=== PATIENT | male | born 1950 | race Caucasian/White ===

== ENCOUNTER 2020-07-11 17:01 | Inpatient (IN) | payer MEDICARE, OTHER ==
--- NOTE | 2020-07-11 17:24 | ED ---
Weakness HPI - General Chief complaint: Weakness Stated complaint: Weakness Time Seen by Provider: 07/11/20 17:01 Source: patient, EMS, RN notes reviewed Mode of arrival: EMS Limitations: no limitations - History of Present Illness Initial comments: C 69-year-old male with a history of lymphoma COPD for ablation and pacemaker among other medical problems please see the attached list who presents from [facility] the transfer with complaints of generalized weakness and inability to weight-bear. The weakness apparently is been going on for about a week. The lymphoma diagnosis is apparently new any is in the process of workup at this time. He recently has had a decrease in oral intake and was noted have dark urine this morning per family apparently. No fevers chills nausea vomiting sweats reported. He does have full appears be chronic edema the left upper extremity and both feet per report. Per paramedics patient did demonstrate tachycardia of about 120 a blood pressure of proximal a 77 systolic. He was given a total of 1200 mL of fluid he did improve his heart rate as well as blood pressure. Occupation modifying factors at this time MD Complaint: generalized weakness Review of Systems ROS Statement: Those systems with pertinent positive or pertinent negative responses have been documented in the HPI. ROS Other: All systems not noted in ROS Statement are negative. Past Medical History Past Medical History: Atrial Fibrillation, COPD Additional Past Medical History / Comment(s): lymphoma. 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 radiation and chemo in 2018 History of Any Multi-Drug Resistant Organisms: None Reported Additional Past Surgical History / Comment(s): knee surgery Past Psychological History: No Psychological Hx Reported Smoking Status: Never smoker Past Alcohol Use History: None Reported Past Drug Use History: None Reported General Exam - General Exam Comments Initial Comments: This is a well-developed well-nourished awake alert oriented times female he is slow to answer questions however. Limitations: no limitations General appearance: alert, in no apparent distress Head exam: Present: atraumatic, normocephalic, normal inspection Eye exam: Present: normal appearance, PERRL, EOMI. Absent: scleral icterus, conjunctival injection, periorbital swelling ENT exam: Present: mucous membranes dry Neck exam: Present: normal inspection, full ROM, other (No stridor JVD or bruits). Absent: tenderness, meningismus, lymphadenopathy Respiratory exam: Present: normal lung sounds bilaterally. Absent: respiratory distress, wheezes, rales, rhonchi, stridor Cardiovascular Exam: Present: regular rate, normal rhythm, normal heart sounds. Absent: systolic murmur, diastolic murmur, rubs, gallop, clicks GI/Abdominal exam: Present: soft, normal bowel sounds. Absent: distended, tenderness, guarding, rebound, rigid Rectal exam: Present: deferred Extremities exam: Present: full ROM, normal capillary refill, pedal edema (Edema noted to both feet and also to left upper extremity extending up into the axilla.). Absent: tenderness, joint swelling, calf tenderness Back exam: Present: normal inspection Neurological exam: Present: alert, oriented X3, CN II-XII intact Psychiatric exam: Present: normal affect, normal mood Skin exam: Present: warm, dry, intact, normal color. Absent: rash Course Vital Signs 07/11/20 17:04 Temperature 98.0 F Pulse Rate 75 Respiratory 20 Rate Blood Pressure 94/63 O2 Sat by Pulse 100 Oximetry Medical Decision Making - Medical Decision Making I did review the materials presented from the transferring facility. Thus the case with Senthil who is covering for Dr. Nguyen. Patient will be admitted with consultation to medical oncology. Patient did seem to respond IV fluids for his hypertensive and tachycardic episode. Disposition Clinical Impression: Lymphoma, Generalized muscle weakness, Hypotensive episode, Dehydration, Failure to thrive Disposition: ADMITTED IP TO THIS HOSP Condition: Fair Referrals: Julian Miramontes MD [Primary Care Provider] - 1-2 days
[2020-07-11] MEDS ORDERED: ACETAMINOPHEN TAB 325 MG TAB PO PRN (18:24)
[2020-07-11] MEDS ORDERED: NALOXONE 0.4 MG/ML 1 ML VIAL IV PRN (18:24)
[2020-07-11] MEDS: SODIUM CHLORIDE 0.9% 1,000 ML IV SCH (18:59)
[2020-07-12] MEDS: HEPARIN SODIUM,PORCINE 5,000 UNIT/ML 1 ML VIAL SQ SCH ×4 (00:45→23:04)
[2020-07-12] MEDS ORDERED: HYDROcodone/APAP 5-325MG 1 EACH TAB PO PRN (01:35)
[2020-07-12] MEDS: IPRATROPIUM-ALBUTEROL 3 ML NEB INHALATION SCH ×5 (03:58→21:26)
[2020-07-12] MEDS: SODIUM CHLORIDE 0.9% 1,000 ML IV SCH ×2 (04:49→15:53)
[2020-07-12] MEDS ORDERED: BUDESONIDE 0.25 MG/2 ML NEBU INHALATION SCH (08:00)
[2020-07-12] MEDS ORDERED: FUROSEMIDE 10 MG/ML 4 ML VIAL IV STA (08:20)
[2020-07-12] MEDS ORDERED: ACETAMINOPHEN TAB 325 MG TAB PO PRN (08:20)
[2020-07-12] MEDS: LIDOCAINE 5% PATCH TOPICAL SCH (09:53)
[2020-07-12 10:17] LABS: African American GFR (CKD) >90 (>60 ml/min/1.73 sqM); Anion Gap 3 mmol/L; Blood Urea Nitrogen 22 mg/dL (9-20); Carbon Dioxide 28 mmol/L (22-30); Chloride 101 mmol/L (98-107); Glucose 106 mg/dL (74-99); LDH 1595 U/L (313-618); Non-African American GFR(CKD) >90 (>60 ml/min/1.73 sqM); Phosphorus 3.7 mg/dL (2.5-4.5); Potassium 4.1 mmol/L (3.5-5.1); Sodium 132 mmol/L (137-145); Uric Acid 6.1 mg/dL (3.5-8.5)
[2020-07-12 10:51] LABS: Anisocytosis Slight; Basophils % (A) 0 %; Eosinophils % (A) 0 %; HCT 31.4 % (39.0-53.0); HGB 10.2 gm/dL (13.0-17.5); Lymphocytes # (A) 0.2 k/uL (1.0-4.8); Lymphocytes % (A) 2 %; MCH 31.8 pg (25.0-35.0); MCHC 32.4 g/dL (31.0-37.0); MCV 98.2 fL (80.0-100.0); Macrocytosis Slight; Mean Platelet Volume 7.9; Monocytes # (A) 0.5 k/uL (0-1.0); Monocytes % (A) 6 %; Neutrophils # (A) 7.5 k/uL (1.3-7.7); Neutrophils % (A) 89 %; RDW 19.1 % (11.5-15.5); WBC 8.4 k/uL (3.8-10.6)
[2020-07-12 11:13] LABS: Platelet Count 89 k/uL (150-450)
--- NOTE | 2020-07-12 14:29 | XR ---
EXAMINATION TYPE: XR chest 2V DATE OF EXAM: 07/12/2020 COMPARISON: 07/11/2020 INDICATION: CHF TECHNIQUE: Frontal and lateral views of the chest are obtained. FINDINGS: The heart size is normal. The pulmonary vasculature is normal. There is prominence through the bilateral hilar regions. Nodular increased density is present. A large mid mediastinal subcarinal mass may be present. Additional wor kup with CT chest is recommended. Correlate for abnormal adenopathy. Small right pleural effusion is present. Minimal left pleural effusion is likely present. There is th ickening through the right apex which could be related to fluid or atelectasis. Milder left apical th ickening may be present. IMPRESSION: 1. There are multiple nodular densities in the perihilar and subcarinal region suspicious for enlarge d lymphadenopathy. Benign and metastatic should be considered. Recommend CT for additional evaluation 2. Small right and minimal left pleural effusion may be present.
--- NOTE | 2020-07-12 14:42 | P.HPIM ---
History of Present Illness 69-year-old male with a history of lymphoma COPD for ablation and pacemaker sent in from [facility] the transfer with complaints of generalized weakness and inability to weight-bear. She says he went in there because of the swelling in the left arm patient does have some a significant the swelling in all 4 extremities significant in the left Upper extremity appears to be lymphedema. The weakness apparently is been going on for about a week. The lymphoma diagnosis is apparently new any is in the process of workup at this time. He recently has had a decrease in oral intake and was noted have dark urine this morning per family apparently. No fevers chills nausea vomiting sweats reported. He does have full appears be chronic edema the left upper extremity and both feet per report. Patient was tachycardic initially patient believed to be hypovolemic because of which patient was given IV fluids. Patient states he uses a walker.. Patient does significant muscle atrophy in both legs quite weak. 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 History of Any Multi-Drug Resistant Organisms: None Reported Additional Past Surgical History / Comment(s): knee surgery Past Anesthesia/Blood Transfusion Reactions: No Reported Reaction Past Psychological History: No Psychological Hx Reported Smoking Status: Never smoker Past Alcohol Use History: None Reported Past Drug Use History: None Reported Medications and Allergies Home Medications Medication Instructions Recorded Confirmed Type Acetaminophen [Tylenol] 325 mg PO DAILY PRN 07/11/20 07/11/20 History Doxycycline Hyclate [Vibramycin] 100 mg PO MOWEFR 07/11/20 07/11/20 History HYDROcodone/APAP 5-325MG [[place] 1 tab PO Q6H PRN 07/11/20 07/11/20 History 5-325] Lidocaine 5% Patch [Lidoderm 5% 1 patch TOPICAL Q12HR 07/11/20 07/11/20 History Patch] Mometasone/Formoterol [Dulera 100 2 puff INHALATION RT-DAILY 07/11/20 07/11/20 History Mcg-5 Mcg Inhaler] predniSONE 5 mg PO MOWEFR 07/11/20 07/11/20 History Allergies Allergy/AdvReac Type Severity Reaction Status Date / Time morphine AdvReac Itching/Sei Verified 07/11/20 19:36 zure Physical Exam Vitals: Vital Signs Temp Pulse Pulse Resp BP BP BP 07/12/20 14:33 97.6 F 75 18 108/58 07/12/20 09:34 75 07/12/20 09:24 75 07/12/20 08:00 75 22 07/12/20 07:49 97.8 F 75 22 139/66 07/12/20 04:09 88 07/12/20 03:59 80 07/12/20 00:05 97.9 F 79 24 106/61 07/11/20 21:35 98.1 F 07/11/20 21:33 74 16 100/68 07/11/20 20:54 70 18 101/66 07/11/20 19:00 72 18 90/70 07/11/20 17:04 98.0 F 75 20 94/63 Pulse Ox 07/12/20 14:33 99 07/12/20 09:34 07/12/20 09:24 07/12/20 08:00 07/12/20 07:49 07/12/20 04:09 07/12/20 03:59 07/12/20 00:05 94 L 07/11/20 21:35 07/11/20 21:33 98 07/11/20 20:54 98 07/11/20 19:00 99 07/11/20 17:04 100 Intake and Output 07/11/20 07/12/20 07/12/20 22:59 06:59 14:59 Output Total 180 Balance -180 Output: Urine 180 Condom 150 Other: Voiding Method Urinal Urinal Diaper Diaper # Voids 2 1 Weight 98.43 kg PHYSICAL EXAMINATION: GENERAL: The patient is alert and oriented x3, patient is obese not in acute respiratory distress appears to have significant lymphedema of the left arm and does have some generalized anasarca HEENT: Pupils are round and equally reacting to light. EOMI. No scleral icterus. No conjunctival pallor. Normocephalic, atraumatic. No pharyngeal erythema. No thyromegaly. CARDIOVASCULAR: S1 and S2 present. No murmurs, rubs, or gallops. PULMONARY: Mild expiratory wheezing with rhonchi and right lower lung bases ABDOMEN: Soft, nontender, nondistended, normoactive bowel sounds. No palpable organomegaly. MUSCULOSKELETAL: No joint swelling or deformity. It appears to have lymphedema of the left thumb EXTREMITIES: No cyanosis, clubbing, or pedal edema. NEUROLOGICAL: Gross neurological examination did not reveal any focal deficits. Patient is has been generalized weakness with muscle atrophy in both legs. SKIN: No rashes. Results CBC & Chem 7: 07/12/20 08:59 07/12/20 08:59 Labs: Abnormal Lab Results - Last 24 Hours (Table) 07/12/20 07/12/20 Range/Units 08:59 08:59 RBC 3.20 L (4.30-5.90) m/uL Hgb 10.2 L (13.0-17.5) gm/dL Hct 31.4 L (39.0-53.0) % RDW 19.1 H (11.5-15.5) % Plt Count 89 L (150-450) k/uL Lymphocytes # 0.2 L (1.0-4.8) k/uL Sodium 132 L (137-145) mmol/L BUN 22 H (9-20) mg/dL Glucose 106 H (74-99) mg/dL Calcium 8.0 L (8.4-10.2) mg/dL Lactate Dehydrogenase 1595 H (313-618) U/L Thrombosis Risk Factor Assmnt - Choose All That Apply Each Factor Represents 1 point: Obesity (BMI >25), Swollen legs (current) Each Risk Factor Represents 2 Points: Age 61-74 years Thrombosis Risk Factor Assessment Total Risk Factor Score: 4 Thrombosis Risk Factor Assessment Level: Moderate Risk Assessment and Plan Plan: -Generalized weakness may be related to newly diagnosed lymphoma. Unsure whether he will tolerate any kind of therapy for lymphoma oncology will be consulted. Physical therapy and occupational therapy will evaluate the patient -Failure to thrive -Generalized anasarca may be secondary to hypoalbuminemia: Patient will be started on Lasix will obtain echocardiogram. -Possible pulmonary edema will obtain a chest x-ray and obtain a BNP patient will be started on Lasix IV fluids will be discontinued. I do not have any echo cardiac exam available. -Lymphedema of the left arm -History of COPD with mild acute exacerbation continue with the inhaled steroids inhalational treatments. -Hypervolemic hyponatremia expected to improve with Lasix will recheck her sodium tomorrow. -Due to prophylaxis with Lovenox
--- NOTE | 2020-07-12 15:17 | XR ---
EXAMINATION TYPE: XR chest 1V DATE OF EXAM: 07/12/2020 COMPARISON: 07/12/2020 earlier exam INDICATION: CHF TECHNIQUE: Single frontal view of the chest is obtained. FINDINGS: The heart size is normal. The pulmonary vasculature is normal. Moderate right pleural effusion. Some atelectasis may be present at the right base as well. Small lef t pleural effusion is stable. Multiple nodularities within the hilum subcarinal region again evident suspicious for adenopathy. CT chest recommended for additional evaluation. Pacemaker overlies left chest. IMPRESSION: 1. There may be some increased atelectasis and/or right pleural effusion compared to prior study. 2. Multiple mediastinal densities likely enlarged prominent lymph nodes.
--- NOTE | 2020-07-12 18:20 | P.CONS ---
History of Present Illness - Reason for Consult Consult date: 07/12/20 recent diagnosis lymphoma Requesting physician: Syed Bocanegra - Chief Complaint failure to thrive - History of Present Illness Mr. Barclay is a very pleasant 69-year-old male who looks older than his chronological age. He is a transfer from outside facility. Admitted with failure to thrive. Patient states a recent diagnosis of lymphoma, not sure what type, biopsy about 3 weeks ago on the left side of his neck. He has a staging PET scan planed. History of tongue cancer treated about 3 years ago in [place], had chemotherapy and radiation. As a history of sarcoidosis. He is on Eliquis for atrial fibrillation. He states the swelling on the left side of his body has been there for about 4-5 months. He is not certain who is cancer Drs. are. He has a dry mouth, poor appetite, not sure if he had fever, no vomiting, chest pain, has congested cough, generalized weakness, shortness of breath with exertion Review of Systems Information obtained from patient, chart, and medical records that were brought with the patient. 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 History of Any Multi-Drug Resistant Organisms: None Reported Additional Past Surgical History / Comment(s): knee surgery, left neck lymph node biopsy Past Anesthesia/Blood Transfusion Reactions: No Reported Reaction Past Psychological History: No Psychological Hx Reported Smoking Status: Never smoker Past Alcohol Use History: None Reported Past Drug Use History: None Reported Medications and Allergies Home Medications Medication Instructions Recorded Confirmed Type Acetaminophen [Tylenol] 325 mg PO DAILY PRN 07/11/20 07/11/20 History Doxycycline Hyclate [Vibramycin] 100 mg PO MOWEFR 07/11/20 07/11/20 History HYDROcodone/APAP 5-325MG [[place] 1 tab PO Q6H PRN 07/11/20 07/11/20 History 5-325] Lidocaine 5% Patch [Lidoderm 5% 1 patch TOPICAL Q12HR 07/11/20 07/11/20 History Patch] Mometasone/Formoterol [Dulera 100 2 puff INHALATION RT-DAILY 07/11/20 07/11/20 History Mcg-5 Mcg Inhaler] predniSONE 5 mg PO MOWEFR 07/11/20 07/11/20 History Allergies Allergy/AdvReac Type Severity Reaction Status Date / Time morphine AdvReac Itching/Sei Verified 07/11/20 19:36 zure Physical Exam Vitals: Vital Signs Temp Pulse Pulse Resp BP BP BP 07/12/20 17:41 80 07/12/20 17:32 80 07/12/20 16:00 75 18 07/12/20 14:33 97.6 F 75 18 108/58 07/12/20 09:34 75 07/12/20 09:24 75 07/12/20 08:00 75 22 07/12/20 07:49 97.8 F 75 22 139/66 07/12/20 04:09 88 07/12/20 03:59 80 07/12/20 00:05 97.9 F 79 24 106/61 07/11/20 21:35 98.1 F 07/11/20 21:33 74 16 100/68 07/11/20 20:54 70 18 101/66 07/11/20 19:00 72 18 90/70 Pulse Ox 07/12/20 17:41 07/12/20 17:32 07/12/20 16:00 07/12/20 14:33 99 07/12/20 09:34 07/12/20 09:24 07/12/20 08:00 07/12/20 07:49 07/12/20 04:09 07/12/20 03:59 07/12/20 00:05 94 L 07/11/20 21:35 07/11/20 21:33 98 07/11/20 20:54 98 07/11/20 19:00 99 Intake and Output 07/12/20 07/12/20 07/12/20 06:59 14:59 22:59 Output Total 1180 Balance -1180 Output: Urine 1180 Condom 150 Other: Voiding Method Urinal Urinal Diaper Diaper # Voids 2 1 - Constitutional General appearance: average body habitus, cooperative, no acute distress - EENT Eyes: anicteric sclerae, EOMI ENT: hearing grossly normal - Neck Neck: lymphadenopathy - Respiratory Respiratory: bilateral: CTA (anterior crackles, congestion) - Cardiovascular Heart sounds: normal: S1, S2 leg Peripheral Edema: right: None, left: 2+ - Gastrointestinal General gastrointestinal: no absent bowel sounds, no decreased bowel sounds, no distended, no hepatomegaly, no hyperactive bowel sounds, normal bowel sounds, no organomegaly, no rigid, no scaphoid, soft, no splenomegaly, no tenderness, no umbilical hernia, no ventral hernia - Integumentary Integumentary: pale - Musculoskeletal Musculoskeletal: generalized weakness - Psychiatric Psychiatric: A&O x's 3, appropriate affect Results CBC & Chem 7: 07/12/20 08:59 07/12/20 08:59 Labs: Abnormal Lab Results - Last 24 Hours (Table) 07/12/20 07/12/20 Range/Units 08:59 08:59 RBC 3.20 L (4.30-5.90) m/uL Hgb 10.2 L (13.0-17.5) gm/dL Hct 31.4 L (39.0-53.0) % RDW 19.1 H (11.5-15.5) % Plt Count 89 L (150-450) k/uL Lymphocytes # 0.2 L (1.0-4.8) k/uL Sodium 132 L (137-145) mmol/L BUN 22 H (9-20) mg/dL Glucose 106 H (74-99) mg/dL Calcium 8.0 L (8.4-10.2) mg/dL Lactate Dehydrogenase 1595 H (313-618) U/L Assessment and Plan (1) Failure to thrive Narrative/Plan: Defer management of the same to attending Current Visit: Yes Status: Acute Priority: High Code(s): EMP6436 - SNOMED Code(s): 99520341 (2) Lymphoma Narrative/Plan: Patient has not yet been staged. From the sounds of it this is already scheduled. Would encourage patient to try and keep the appointments. Tumor lysis labs ordered. No evidence of the same at this time Patient will return to his treating Oncologist for staging and plan of care. Would recommend evaluation by PT/OT. Nothing acutely otherwise from Oncology. Current Visit: Yes Status: Acute Priority: High Code(s): C85.90 - NON- HODGKIN LYMPHOMA, UNSPECIFIED, UNSPECIFIED SITE SNOMED Code(s): 629571527 Plan: Doctor attests: I performed a history and physical examination of this patient, developed impression and plan of care, discussed with dictator. I agree with dictators note, documented as a scribe.
[2020-07-12] MEDS: FUROSEMIDE 10 MG/ML 4 ML VIAL IV SCH (20:03)
[2020-07-12] MEDS: SYMBICORT 80-4.5 MCG INHALER INHALATION SCH (21:25)
[2020-07-13] MEDS: FUROSEMIDE 10 MG/ML 4 ML VIAL IV SCH ×2 (08:12→19:48)
[2020-07-13] MEDS: HEPARIN SODIUM,PORCINE 5,000 UNIT/ML 1 ML VIAL SQ SCH ×2 (08:12→16:16)
[2020-07-13] MEDS: LIDOCAINE 5% PATCH TOPICAL SCH (08:12)
[2020-07-13] MEDS: IPRATROPIUM-ALBUTEROL 3 ML NEB INHALATION SCH ×4 (09:23→20:12)
[2020-07-13] MEDS: SYMBICORT 80-4.5 MCG INHALER INHALATION SCH ×2 (09:29→20:14)
[2020-07-13 10:53] LABS: African American GFR (CKD) 105.6 (60.0-200.0); BUN/Creat Ratio 27.5 Ratio (12.00-20.00); Calcium 8.1 mg/dL (8.7-10.3); Non-African American GFR(CKD) 91.1 (60.0-200.0); Potassium 3.3 mmol/L (3.5-5.5)
--- NOTE | 2020-07-13 11:18 | ECHOF ---
Referral Reason:CHF MEASUREMENTS -------- HEIGHT: 185.4 cm WEIGHT: 98.4 kg BP: 108/58 RVIDd: 3.9 cm (< 3.3) IVSd: 1.2 cm (0.6 - 1.1) LVIDd: 5.3 cm (3.9 - 5.3) LVPWd: 1.0 cm (0.6 - 1.1) IVSs: 2.0 cm LVIDs: 2.9 cm LVPWs: 1.7 cm LA Diam: 4.2 cm (2.7 - 3.8) Ao Diam: 3.5 cm (2.0 - 3.7) AV Cusp: 2.3 cm (1.5 - 2.6) MV EXCURSION: 23.601 mm (> 18.000) MV EF SLOPE: 112 mm/s (70 - 150) EPSS: 0.2 cm RAP: 5.00 mmHg RVSP: 48.39 mmHg FINDINGS -------- This was a technically adequate study. The left ventricular size is normal. There is borderline concentric left ventricular hypertrophy. Overall left ventricular systolic function is normal with, an EF between 55 - 60 %. The right ventricle is moderately enlarged. The right ventricular septal wall is flattened in systo le which is consistent with right ventricular pressure overload. The left atrium is mildly dilated. The right atrium is normal in size. Interatrial and interventricular septum intact. There is mild aortic valve sclerosis. The mitral valve is normal. Mild tricuspid regurgitation present. There is moderate pulmonary hypertension. The right ventric ular systolic pressure, as measured by Doppler, is 48.39mmHg. Trace/mild (physiologic) pulmonic regurgitation. The aortic root size is normal. The inferior vena cava is mildly dilated. There is no pericardial effusion. CONCLUSIONS -------- 1. The left ventricular size is normal. 2. There is borderline concentric left ventricular hypertrophy. 3. Overall left ventricular systolic function is normal with, an EF between 55 - 60 %. 4. The right ventricle is moderately enlarged. 5. The right ventricular septal wall is flattened in systole which is consistent with right ventricu lar pressure overload. 6. The left atrium is mildly dilated. 7. There is mild aortic valve sclerosis. 8. Mild tricuspid regurgitation present. 9. There is moderate pulmonary hypertension. 10. The right ventricular systolic pressure, as measured by Doppler, is 48.39mmHg. 11. Trace/mild (physiologic) pulmonic regurgitation. 12. The inferior vena cava is mildly dilated. 13. There is no pericardial effusion. MEDICAL DIR: Susan Cerna RDCS
[2020-07-13] MEDS ORDERED: Potassium Replacement Protocol 1 EACH MISC MISCELLANE PRN (11:28)
[2020-07-13] MEDS: POTASSIUM CHLORIDE ER 20 MEQ TAB.ER PO SCH ×2 (12:10→13:53)
--- NOTE | 2020-07-13 14:05 | P.PN ---
Subjective 69-year-old male with a history of lymphoma COPD for ablation and pacemaker sent in from [facility] the transfer with complaints of generalized weakness and inability to weight-bear. She says he went in there because of the swelling in the left arm patient does have some a significant the swelling in all 4 extremities significant in the left Upper extremity appears to be lymphedema. The weakness apparently is been going on for about a week. The lymphoma diagnosis is apparently new any is in the process of workup at this time. He recently has had a decrease in oral intake and was noted have dark urine this morning per family apparently. No fevers chills nausea vomiting sweats reported. He does have full appears be chronic edema the left upper extremity and both feet per report. Patient was tachycardic initially patient believed to be hypovolemic because of which patient was given IV fluids. Patient states he uses a walker.. Patient does significant muscle atrophy in both legs quite weak. 07/13/2020 Patient is still not doing well is overall clinical condition is worse although patient edema may have improved a bit patient had an echocardiogram which showed normal ejection fraction but does have RVSP is right-sided volume overload which are probably explains his diffuse anasarca. Patient creatinine remained stable continues to be in IV Lasix. Patient is quite weak diffuse to have significant mediastinal adenopathy and lymphedema. Patient appears to have lymphoma with significant adenopathy diffuse. I do not believe patient can tolerated he can of chemotherapy because of his overall clinical condition. Will discuss with oncologist. We did did talk to oncology nurse practitioner. Patient remains full code. Rest x-ray showing bilateral pleural effusions ROS of systems: Unreliable as patient is confused today All inpatient medications were reviewed and appropriate changes in these medications as dictated in the interval history and assessment and plan. Objective - Vital Signs Vital signs: Vital Signs Temp 97.3 F L 07/13/20 07:43 Pulse 88 07/13/20 13:10 Resp 18 07/13/20 07:43 BP 107/64 07/13/20 07:43 Pulse Ox 98 07/13/20 00:10 Intake & Output 07/12/20 07/13/20 07/13/20 18:59 06:59 18:59 Output Total 1180 1200 1080 Balance -1180 -1200 -1080 Output: Urine 1180 1200 1080 Condom 150 Other: Voiding Method Urinal Urinal Diaper Diaper # Voids 1 1 - Exam PHYSICAL EXAMINATION: GENERAL: The patient is drowsy and bit confused, patient is obese not in acute respiratory distress appears to have significant lymphedema of the left arm and does have some generalized anasarca patient looks quite sick and weak. HEENT: Pupils are round and equally reacting to light. EOMI. No scleral icterus. No conjunctival pallor. Normocephalic, atraumatic. No pharyngeal erythema. No thyromegaly. CARDIOVASCULAR: S1 and S2 present. No murmurs, rubs, or gallops. PULMONARY: Mild expiratory wheezing with rhonchi and right lower lung bases ABDOMEN: Soft, nontender, nondistended, normoactive bowel sounds. No palpable organomegaly. MUSCULOSKELETAL: No joint swelling or deformity. It appears to have lymphedema of the left thumb EXTREMITIES: No cyanosis, clubbing, or pedal edema. NEUROLOGICAL: Gross neurological examination did not reveal any focal deficits. Patient is has been generalized weakness with muscle atrophy in both legs. SKIN: No rashes. - Labs CBC & Chem 7: 07/12/20 08:59 07/13/20 07:42 Labs: Abnormal Lab Results - Last 24 Hours (Table) 07/13/20 Range/Units 07:42 Sodium 134 L (135-145) mmol/L Potassium 3.3 L (3.5-5.5) mmol/L Chloride 94 L (96-109) mmol/L Carbon Dioxide 32.0 H (21.6-31.8) mmol/L BUN/Creatinine Ratio 27.50 H (12.00-20.00) Ratio Calcium 8.1 L (8.7-10.3) mg/dL Assessment and Plan Plan: -Generalized weakness may be related to newly diagnosed lymphoma. Patient has significant adenopathy in the mediastinum. Probably will not tolerate c hemotherapy patient is more appropriate for hospice will discuss with oncology and family -Metabolic encephalopathy. -Failure to thrive -Generalized anasarca may be secondary to hypoalbuminemia: She'll be can you done IV Lasix -We'll start failure chronic diastolic dysfunction along with significant right- sided heart failure acute Lasix -Possible pulmonary edema will obtain a chest x-ray and obtain a BNP patient will be started on Lasix IV fluids will be discontinued. I do not have any echo cardiac exam available. -Lymphedema of the left arm -History of COPD with mild acute exacerbation continue with the inhaled steroids inhalational treatments. -Hypervolemic hyponatremia improved with Lasix. -Due to prophylaxis with Lovenox
[2020-07-13] MEDS ORDERED: IOPAMIDOL CONTRAST (ORAL USE) VIAL PO PRN (18:18)
--- NOTE | 2020-07-13 18:18 | P.PN ---
Subjective Progress Note Date: 07/13/20 patient is weaker, with more periods of confusion. He is also more short of breath. Objective - Vital Signs Vital signs: Vital Signs Temp 98.3 F 07/13/20 14:38 Pulse 86 07/13/20 17:50 Resp 18 07/13/20 14:38 BP 95/56 07/13/20 14:38 Pulse Ox 98 07/13/20 14:38 Intake & Output 07/12/20 07/13/20 07/13/20 18:59 06:59 18:59 Output Total 1180 1200 1080 Balance -1180 -1200 -1080 Output: Urine 1180 1200 1080 Condom 150 Other: Voiding Method Urinal Urinal Diaper Diaper # Voids 1 1 - Constitutional General appearance: Present: mild distress - EENT Eyes: Present: EOMI ENT: Present: hearing grossly normal, normal oropharynx - Respiratory Respiratory: left: rales (right greater than left) - Cardiovascular Rhythm: regular Heart sounds: normal: S1, S2 - Gastrointestinal General gastrointestinal: Present: normal bowel sounds, soft - Integumentary Integumentary: Present: normal - Neurologic Neurologic: Present: CNII-XII intact - Musculoskeletal Musculoskeletal: Present: generalized weakness, strength equal bilaterally - Psychiatric Psychiatric Comment(s): intermittent confusion - Labs CBC & Chem 7: 07/12/20 08:59 07/13/20 07:42 Labs: Abnormal Lab Results - Last 24 Hours (Table) 07/13/20 Range/Units 07:42 Sodium 134 L (135-145) mmol/L Potassium 3.3 L (3.5-5.5) mmol/L Chloride 94 L (96-109) mmol/L Carbon Dioxide 32.0 H (21.6-31.8) mmol/L BUN/Creatinine Ratio 27.50 H (12.00-20.00) Ratio Calcium 8.1 L (8.7-10.3) mg/dL Assessment and Plan (1) Acute respiratory failure Narrative/Plan: this discussed with patient's daughter, and also admitting service in detail. The patient has been having generalized weakness for some weeks with progressive failure to thrive. However acute severe weakness and shortness of breath has occurred only over the past 2-3 days. On exam the patient does have some rales today. echocardiogram showed normal ejection fraction but evidence of pulmonary hypertension. - Patient has been started on Lasix by the admitting service - He did have coronavirus testing done at [facility]. Discuss with nursing to contact them to obtain results. Definitive PCR testing will be done here. We'll also check influenza. - Continue aggressive supportive care Current Visit: Yes Status: Acute Code(s): J96.00 - ACUTE RESPIRATORY FAILURE, UNSP W HYPOXIA OR HYPERCAPNIA SNOMED Code(s): 41739629 (2) Lymphoma Narrative/Plan: details of this diagnosis were obtained from the daughter. At this time it appears that the patient is in a very preliminary stage. He did have biopsy done and of 06/12. However according to the daughter the diagnosis was lymphoma, but the exact subtype is not known. Apparently the pathology was sent to the nearest [facility] for further subtyping. According to the daughter , she has not heard back as to the exact subtype so far. She did contact the primary oncologist office today but was unable to get them. She is hoping to get in touch with them again on 07/16/20 - Therefore at this time we do not have information as to the exact subtype. We also do not have information regarding the stage is a patient was unable to get his PET scan done. While it is likely that his decline over the last few weeks is due to lymphoma diagnosis, most times of lymphoma will be at least very treatable with good expectation of reversal of even severe symptoms. Therefore at this stage it would be reasonable to continue aggressive supportive care until further information is available regarding his lymphoma diagnosis. - I will check imaging studies in the meantime to get an idea of extent of disease for - Patient had labs done to check for any evidence of spontaneous tumor lysis w hich were negative. Continue to monitor labs. Current Visit: Yes Status: Acute Priority: High Code(s): C85.90 - NON- HODGKIN LYMPHOMA, UNSPECIFIED, UNSPECIFIED SITE SNOMED Code(s): 727793581
[2020-07-13] MEDS ORDERED: IPRATROPIUM-ALBUTEROL 3 ML NEB INHALATION PRN (20:19)
[2020-07-13] MEDS ORDERED: FUROSEMIDE 10 MG/ML 4 ML VIAL IV STA (23:31)
[2020-07-13 23:50] LABS: ABG Base Excess 5.6 mmol/L; ABG HCO3 31 mmol/L (21-25); ABG Oxygen Saturation 95.5 % (94-97); ABG PCO2 50 mmHg (35-45); ABG PH 7.39 (7.35-7.45); ABG PO2 79 mmHg (83-108); ABG TCO2 32 mmol/L (19-24); Allen Test Performed? Yes
--- NOTE | 2020-07-14 00:11 | XR ---
EXAMINATION TYPE: XR chest 1V portable DATE OF EXAM: 07/13/2020 COMPARISON: 07/12/2020 HISTORY: Weakness. Respiratory distress. TECHNIQUE: FINDINGS: There are multiple large calcified granulomata at the pulmonary ludwig. There is blunting rig ht costophrenic angle. There is no heart failure. There is left axillary pacemaker. There is pleural thickening at the right lung apex. Trachea is deviated slightly to the right side. IMPRESSION: There is old granulomatous disease. There is pleural and pulmonary scarring and slight vo lume loss in the right hemithorax unchanged compared to yesterday. No heart failure seen.
[2020-07-14 00:29] LABS: African American GFR (CKD) >90 (>60 ml/min/1.73 sqM); Anion Gap 2 mmol/L; Blood Urea Nitrogen 27 mg/dL (9-20); Calcium 6.8 mg/dL (8.4-10.2); Carbon Dioxide 31 mmol/L (22-30); Chloride 95 mmol/L (98-107); Glucose 113 mg/dL (74-99); Magnesium 1.5 mg/dL (1.6-2.3); Non-African American GFR(CKD) 89 (>60 ml/min/1.73 sqM); Sodium 128 mmol/L (137-145)
[2020-07-14 00:33] LABS: Potassium 4.1 mmol/L (3.5-5.1)
[2020-07-14] MEDS: HEPARIN SODIUM,PORCINE 5,000 UNIT/ML 1 ML VIAL SQ SCH ×3 (01:08→17:25)
[2020-07-14] MEDS: IPRATROPIUM-ALBUTEROL 3 ML NEB INHALATION SCH ×4 (09:13→19:52)
[2020-07-14] MEDS: SYMBICORT 80-4.5 MCG INHALER INHALATION SCH ×2 (09:13→19:57)
[2020-07-14] MEDS: FUROSEMIDE 10 MG/ML 4 ML VIAL IV SCH (09:49)
[2020-07-14 09:59] LABS: Glucose,Whole Blood 113 mg/dL (75-99)
[2020-07-14 10:28] LABS: ABG Base Excess 6.5 mmol/L; ABG HCO3 32 mmol/L (21-25); ABG Oxygen Saturation 93.5 % (94-97); ABG PCO2 59 mmHg (35-45); ABG PH 7.35 (7.35-7.45); ABG PO2 72 mmHg (83-108); ABG TCO2 34 mmol/L (19-24); Allen Test Performed? Yes
--- NOTE | 2020-07-14 10:29 | XR ---
EXAMINATION TYPE: XR chest 1V portable DATE OF EXAM: 07/14/2020 HISTORY: Shortness of breath. COMPARISON: 07/13/2020 TECHNIQUE: Single view of the chest is submitted. FINDINGS: Demonstrated are scattered senescent parenchymal change. There is no evidence for focal infiltrate. The heart is stable. Calcified hilar lymph nodes compatible with remote granulomatous disease. Dual-lead pacer device note d. Degenerative changes are seen of the dorsal spine. IMPRESSION: 1. Chronic changes without evidence for acute pulmonary disease.
[2020-07-14] MEDS ORDERED: SODIUM CHLORIDE 0.9% 500 ML 500 ML IV ONE ×3 (10:48→20:46)
[2020-07-14] MEDS ORDERED: VANCOMYCIN IV PER PHARMACY 1 EACH MISC MISCELLANE PRN (10:49)
[2020-07-14] MEDS ORDERED: VANCOMYCIN 1,750 MG in SODIUM CHLORIDE 0.9% 500 ML 500 ML IVPB SCH (11:00)
[2020-07-14] MEDS ORDERED: ACETAMINOPHEN IV (For NPO) 1,000 MG in EMPTY BAG 1 BAG IVPB PRN (11:08)
[2020-07-14 11:11] LABS: Anisocytosis Slight; HCT 32.3 % (39.0-53.0); HGB 10.2 gm/dL (13.0-17.5); MCH 30.9 pg (25.0-35.0); MCHC 31.6 g/dL (31.0-37.0); MCV 97.9 fL (80.0-100.0); Macrocytosis Slight; Mean Platelet Volume 9.1; Platelet Count 107 k/uL (150-450); RDW 18.5 % (11.5-15.5); WBC 11.9 k/uL (3.8-10.6)
[2020-07-14 11:22] LABS: Magnesium 1.7 mg/dL (1.6-2.3)
[2020-07-14] MEDS: MAGNESIUM SULFATE-D5W PMX 1 GM in DEXTROSE/WATER 1 100ML.BAG IVPB SCH ×2 (11:22→12:40)
[2020-07-14 11:39] LABS: Creatine Kinase MB 0.8 ng/mL (0.0-2.4)
[2020-07-14 11:42] LABS: Troponin I 0.067 ng/mL (0.000-0.034)
[2020-07-14 11:59] LABS: C Reactive Protein 192.1 mg/L (<10.0)
[2020-07-14 12:00] LABS: African American GFR (CKD) 64.5 (60.0-200.0); Anion Gap 10.4 mmol/L (4.00-12.00); BUN/Creat Ratio 25.38 Ratio (12.00-20.00); Calcium 8.3 mg/dL (8.7-10.3); Carbon Dioxide 32.6 mmol/L (21.6-31.8); Non-African American GFR(CKD) 55.7 (60.0-200.0); Potassium 4.1 mmol/L (3.5-5.5)
[2020-07-14 12:04] LABS: INR 1.4 (<1.2); Partial Thromboplastin Time 33.2 sec (22.0-30.0); Prothrombin Time 14.3 sec (9.0-12.0)
[2020-07-14] MEDS: LIDOCAINE 5% PATCH TOPICAL SCH (12:04)
[2020-07-14 12:44] LABS: Glucose,Whole Blood 96 mg/dL (75-99)
[2020-07-14] MEDS ORDERED: SODIUM CHLORIDE 0.9% 1,000 ML IV SCH (13:15)
--- NOTE | 2020-07-14 14:52 | P.CNPUL ---
History of Present Illness Consult date: 07/14/20 Requesting physician: Altaf Thurston Reason for consult: abnormal CXR/CT Chief complaint: Generalized weakness, failure to thrive History of present illness: This is a 69-year-old gentleman who follows with Dr. Miramontes as his primary care provider. He has a history of chronic obstructive pulmonary disease, atrial fibrillation with previous ablation and permanent pacemaker implantation. He was diagnosed with lymphoma but so far has not had any treatment initiated. He presented to [facility] on 07/11/2020 was subsequently transferred here for further evaluation. He's not had a PET scan or any follow-up thus far. The patient was having increasing oxygen requirements and developed a fever and we are consulted today for the same. He is seen on the selective care unit. He is currently on BiPAP 16/870% FiO2 to maintain O2 saturations in the 90s. Chest x-ray reveals evidence of chronic changes but no acute pulmonary disease. White count 11.9. Hemoglobin 10.2. Sodium 135. Potassium 4.1. Creatinine 1.3. Lactic acid 4.2. Troponin 0.067. C-reactive protein 192. Temp is up to 101.9 axillary. He's been initiated on vancomycin and Zosyn. He is on bronchodilat ors. Arterial blood gases revealed a pO2 of 72, pCO2 59 and a pH of 7.35 on 100% FiO2. Review of Systems ROS unobtainable: due to mental status Past Medical History Past Medical History: Atrial Fibrillation, Cancer, COPD Additional Past Medical History / Comment(s): lymphoma. 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 r adiation and chemo in 2018 History of Any Multi-Drug Resistant Organisms: None Reported Additional Past Surgical History / Comment(s): knee surgery, left neck lymph node biopsy Past Anesthesia/Blood Transfusion Reactions: No Reported Reaction Past Psychological History: No Psychological Hx Reported Smoking Status: Never smoker Past Alcohol Use History: None Reported Past Drug Use History: None Reported Medications and Allergies Home Medications Medication Instructions Recorded Confirmed Type Acetaminophen [Tylenol] 325 mg PO DAILY PRN 07/11/20 07/11/20 History Doxycycline Hyclate [Vibramycin] 100 mg PO MOWEFR 07/11/20 07/11/20 History HYDROcodone/APAP 5-325MG [[place] 1 tab PO Q6H PRN 07/11/20 07/11/20 History 5-325] Lidocaine 5% Patch [Lidoderm 5% 1 patch TOPICAL Q12HR 07/11/20 07/11/20 History Patch] Mometasone/Formoterol [Dulera 100 2 puff INHALATION RT-DAILY 07/11/20 07/11/20 History Mcg-5 Mcg Inhaler] predniSONE 5 mg PO MOWEFR 07/11/20 07/11/20 History Allergies Allergy/AdvReac Type Severity Reaction Status Date / Time morphine AdvReac Itching/Sei Verified 07/11/20 19:36 zure Physical Exam Vitals: Vital Signs Temp Pulse Pulse Resp BP Pulse Ox 07/14/20 12:20 80 07/14/20 12:08 76 07/14/20 11:31 101.9 F H 74 97/53 96 07/14/20 11:11 101.3 F H 75 34 H 89/53 07/14/20 10:30 99.1 F 35 H 95/53 94 L 07/14/20 09:40 75 32 H 106/52 94 L 07/14/20 09:27 88 07/14/20 09:14 84 07/14/20 07:00 98.4 F 75 32 H 110/64 100 07/14/20 06:04 79 40 H 128/61 98 07/14/20 03:34 32 H 07/14/20 03:00 101.0 F H 75 26 H 109/59 99 07/14/20 00:00 40 H 07/13/20 23:56 77 32 H 120/58 93 L 07/13/20 21:46 75 32 H 100/59 99 07/13/20 20:23 76 07/13/20 20:15 75 40 H 07/13/20 19:55 98.7 F 80 40 H 111/57 97 07/13/20 17:50 86 07/13/20 17:44 86 Intake and Output 07/13/20 07/14/20 07/14/20 22:59 06:59 14:59 Intake Total 0 Output Total 225 450 Balance -225 -450 0 Intake: Oral 0 Output: Urine 225 450 Other: Voiding Method Urinal Urinal Incontinent Diaper Diaper GENERAL EXAM: Obtunded 69-year-old gentleman, difficult to arouse, chronically ill-appearing, currently on BiPAP at 70% FiO2. HEAD: Normocephalic. EYES: Normal reaction of pupils, equal size. NOSE: Clear with pink turbinates. THROAT: No erythema or exudates. NECK: Noted cervical adenopathy CHEST: No chest wall deformity. LUNGS: Equal air entry with bibasilar crackles, diminished CVS: S1 and S2 normal with no audible murmur, regular rhythm. ABDOMEN: Anasarca. Normal bowel sounds, no guarding or rigidity. SPINE: No scoliosis or deformity SKIN: No rashes CENTRAL NERVOUS SYSTEM: No focal deficits, tone is normal in all 4 extremities. EXTREMITIES: There is significant left upper extremity edema. Significant lower extremity weakness. No clubbing, no cyanosis. Peripheral pulses are intact. Results - Laboratory Findings CBC and BMP: 07/14/20 10:32 07/14/20 06:28 ABG ABG pH 7.35 (7.35-7.45) 07/14/20 10:26 ABG pCO2 59 mmHg (35-45) H 07/14/20 10:26 ABG pO2 72 mmHg (83-108) L 07/14/20 10:26 ABG O2 Saturation 93.5 % (94-97) L 07/14/20 10:26 PT/INR, D-dimer PT 14.3 sec (9.0-12.0) H 07/14/20 10:32 INR 1.4 (<1.2) H 07/14/20 10:32 Abnormal lab findings: Abnormal Labs 07/12/20 07/12/20 07/13/20 08:59 08:59 07:42 WBC RBC 3.20 L Hgb 10.2 L Hct 31.4 L RDW 19.1 H Plt Count 89 L Lymphocytes # 0.2 L PT INR APTT ABG pCO2 ABG pO2 ABG HCO3 ABG Total CO2 ABG O2 Saturation Sodium 132 L 134 L Potassium 3.3 L Chloride 94 L Carbon Dioxide 32.0 H BUN 22 H Est GFR (CKD-EPI)NonAf BUN/Creatinine Ratio 27.50 H Glucose 106 H POC Glucose (mg/dL) Plasma Lactic Acid Derrell Calcium 8.0 L 8.1 L Phosphorus Magnesium Lactate Dehydrogenase 1595 H Total Creatine Kinase Troponin I C-Reactive Protein 07/13/20 07/14/20 07/14/20 23:49 00:05 06:28 WBC RBC Hgb Hct RDW Plt Count Lymphocytes # PT INR APTT ABG pCO2 50 H ABG pO2 79 L ABG HCO3 31 H ABG Total CO2 32 H ABG O2 Saturation Sodium 128 L Potassium Chloride 95 L 92 L Carbon Dioxide 31 H 32.6 H BUN 27 H 33.0 H Est GFR (CKD-EPI)NonAf 55.7 L BUN/Creatinine Ratio 25.38 H Glucose 113 H POC Glucose (mg/dL) Plasma Lactic Acid Derrell Calcium 6.8 L 8.3 L Phosphorus Magnesium 1.5 L Lactate Dehydrogenase Total Creatine Kinase Troponin I C-Reactive Protein 07/14/20 07/14/20 07/14/20 09:57 10:26 10:32 WBC 11.9 H RBC 3.30 L Hgb 10.2 L Hct 32.3 L RDW 18.5 H Plt Count 107 L Lymphocytes # PT INR APTT ABG pCO2 59 H ABG pO2 72 L ABG HCO3 32 H ABG Total CO2 34 H ABG O2 Saturation 93.5 L Sodium Potassium Chloride Carbon Dioxide BUN Est GFR (CKD-EPI)NonAf BUN/Creatinine Ratio Glucose POC Glucose (mg/dL) 113 H Plasma Lactic Acid Derrell Calcium Phosphorus Magnesium Lactate Dehydrogenase Total Creatine Kinase Troponin I C-Reactive Protein 07/14/20 07/14/20 07/14/20 10:32 10:32 10:32 WBC RBC Hgb Hct RDW Plt Count Lymphocytes # PT 14.3 H INR 1.4 H APTT 33.2 H ABG pCO2 ABG pO2 ABG HCO3 ABG Total CO2 ABG O2 Saturation Sodium Potassium Chloride Carbon Dioxide BUN Est GFR (CKD-EPI)NonAf BUN/Creatinine Ratio Glucose POC Glucose (mg/dL) Plasma Lactic Acid Derrell 3.7 H* Calcium Phosphorus Magnesium Lactate Dehydrogenase Total Creatine Kinase 50 L Troponin I 0.067 H* C-Reactive Protein 07/14/20 10:32 WBC RBC Hgb Hct RDW Plt Count Lymphocytes # PT INR APTT ABG pCO2 ABG pO2 ABG HCO3 ABG Total CO2 ABG O2 Saturation Sodium Potassium Chloride Carbon Dioxide BUN Est GFR (CKD-EPI)NonAf BUN/Creatinine Ratio Glucose POC Glucose (mg/dL) Plasma Lactic Acid Derrell Calcium Phosphorus 5.0 H Magnesium Lactate Dehydrogenase Total Creatine Kinase Troponin I C-Reactive Protein 192.1 H - Diagnostic Findings Chest x-ray: image reviewed (Changes with no acute pulmonary process) Assessment and Plan Assessment: Acute hypoxic respiratory failure secondary to suspected diastolic congestive heart failure with fluid volume overload Generalized anasarca secondary to hypoalbuminemia Recent diagnosis of lymphoma with no treatment initiated thus far Progressive weakness with failure to thrive Pulmonary hypertension History of atrial fibrillation with ablation and subsequent pacemaker implantation Poor overall functional performance based on the above-mentioned comorbidities Plan: The patient was seen and evaluated by Dr. Herbert Continue with BiPAP at the current settings for now Overall prognosis is quite poor and guarded He is a DO NOT RESUSCITATE/DO NOT INTUBATE CODE STATUS May need to consider hospice/comfort care We'll continue supportive care until then Continue diuretics Continue antibiotics We'll continue to follow I, the cosigning physician, performed a history & physical examination of the patient. Lungs sounds bibasilar crackles. Maintaining good O2 saturations in the 90s on IPAP of 70% FiO2. I discussed the assessment and plan of care with my nurse practitioner, Dominique Lemon. I attest to the above consultation as dictated by her. Time with Patient: Greater than 30
[2020-07-14] MEDS ORDERED: PIPERACILLIN-TAZOBACTAM 3.375 GM in SODIUM CHLORIDE 0.9% 100 ML IVPB SCH (16:00)
--- NOTE | 2020-07-14 16:11 | P.PN ---
Subjective 69-year-old male with a history of lymphoma COPD for ablation and pacemaker sent in from [facility] the transfer with complaints of generalized weakness and inability to weight-bear. She says he went in there because of the swelling in the left arm patient does have some a significant the swelling in all 4 extremities significant in the left Upper extremity appears to be lymphedema. The weakness apparently is been going on for about a week. The lymphoma diagnosis is apparently new any is in the process of workup at this time. He recently has had a decrease in oral intake and was noted have dark urine this morning per family apparently. No fevers chills nausea vomiting sweats reported. He does have full appears be chronic edema the left upper extremity and both feet per report. Patient was tachycardic initially patient believed to be hypovolemic because of which patient was given IV fluids. Patient states he uses a walker.. Patient does significant muscle atrophy in both legs quite weak. 07/13/2020 Patient is still not doing well is overall clinical condition is worse although patient edema may have improved a bit patient had an echocardiogram which showed normal ejection fraction but does have RVSP is right-sided volume overload which are probably explains his diffuse anasarca. Patient creatinine remained stable continues to be in IV Lasix. Patient is quite weak diffuse to have significant mediastinal adenopathy and lymphedema. Patient appears to have lymphoma with significant adenopathy diffuse. I do not believe patient can tolerated he can of chemotherapy because of his overall clinical condition. Will discuss with oncologist. We did did talk to oncology nurse practitioner. Patient remains full code. Rest x-ray showing bilateral pleural effusions 07/14/2020 Patient started having fever and went into respiratory distress, Covid 19 is pending blood cultures urine cultures were obtained and repeat chest x-ray was obtained. Patient may have postobstructive pneumonia because of which patient was started on Zosyn will also add vancomycin, pulmonary was consulted. Patient mostly has acute hypoxic respiratory failure patient does appear to have some CO2 retention chronically. Patient was given a 500 bolus of fluid Lasix was discontinued patient will be continued on gentle hydration patient is presently hypovolemic. Was initially treated for heart failure chronic diastolic dysf unction. Patient was evaluated by oncology yesterday. Had a lengthy discussion with the daughter yesterday as well as today. After which daughter wishes him to be DO NOT RESUSCITATE. She is presently on BiPAP. ROS of systems: Unreliable as patient is confused today All inpatient medications were reviewed and appropriate changes in these medications as dictated in the interval history and assessment and plan. Objective - Vital Signs Vital signs: Vital Signs Temp 101.2 F H 07/14/20 11:50 Pulse 76 07/14/20 15:41 Resp 34 H 07/14/20 11:11 BP 91/55 07/14/20 15:41 Pulse Ox 88 L 07/14/20 15:41 Intake & Output 07/13/20 07/14/20 07/14/20 18:59 06:59 18:59 Intake Total 950 Output Total 1080 675 Balance -1080 -675 950 Intake: Intake, IV Titration 950 Amount ACETAMINOPHEN IV (For NPO 100 ) 1,000 mg In Empty Bag 1 bag @ 400 mls/hr IVPB Q6HR PRN Rx#:[id number] Magnesium Sulfate-D5w Pmx 200 1 gm In Dextrose/Water 1 100ml.bag @ 100 mls/hr IVPB Q1H [facility] Rx#: [id number] Sodium Chloride 0.9% 1, 150 000 ml @ 75 mls/hr IV . [id number] [facility] Rx#:[id number] Vancomycin 1,750 mg In 500 Sodium Chloride 0.9% 500 ml 500 ml @ 167 mls/hr IVPB Q12HR [facility] Rx#: [id number] Oral 0 Output: Urine 1080 675 Other: Voiding Method Urinal Indwelling Catheter Diaper # Voids 1 - Exam PHYSICAL EXAMINATION: GENERAL: Tlooks quite sick and weak. is presently on BiPAP with an of mild respiratory distress HEENT: Pupils are round and equally reacting to light. EOMI. No scleral icterus. No conjunctival pallor. Normocephalic, atraumatic. No pharyngeal erythema. No thyromegaly. CARDIOVASCULAR: S1 and S2 present. No murmurs, rubs, or gallops. PULMONARY: Mild expiratory wheezing with rhonchi and right lower lung bases ABDOMEN: Soft, nontender, nondistended, normoactive bowel sounds. No palpable organomegaly. MUSCULOSKELETAL: No joint swelling or deformity. It appears to have lymphedema of the left thumb EXTREMITIES: No cyanosis, clubbing, or pedal edema. NEUROLOGICAL: Gross neurological examination did not reveal any focal deficits. Patient is has been generalized weakness with muscle atrophy in both legs. SKIN: No rashes. - Labs CBC & Chem 7: 07/14/20 10:32 07/14/20 06:28 Labs: Abnormal Lab Results - Last 24 Hours (Table) 07/13/20 07/14/20 07/14/20 Range/Units 23:49 00:05 06:28 WBC (3.8-10.6) k/uL RBC (4.30-5.90) m/uL Hgb (13.0-17.5) gm/dL Hct (39.0-53.0) % RDW (11.5-15.5) % Plt Count (150-450) k/uL PT (9.0-12.0) sec INR (<1.2) APTT (22.0-30.0) sec ABG pCO2 50 H (35-45) mmHg ABG pO2 79 L (83-108) mmHg ABG HCO3 31 H (21-25) mmol/L ABG Total CO2 32 H (19-24) mmol/L ABG O2 Saturation (94-97) % Sodium 128 L (137-145) mmol/L Chloride 95 L 92 L (98-107) mmol/L Carbon Dioxide 31 H 32.6 H (22-30) mmol/L BUN 27 H 33.0 H (9-20) mg/dL Est GFR (CKD-EPI)NonAf 55.7 L (60.0-200.0) BUN/Creatinine Ratio 25.38 H (12.00-20.00) Ratio Glucose 113 H (74-99) mg/dL POC Glucose (mg/dL) (75-99) mg/dL Plasma Lactic Acid Derrell (0.7-2.0) mmol/L Calcium 6.8 L 8.3 L (8.4-10.2) mg/dL Phosphorus (2.5-4.5) mg/dL Magnesium 1.5 L (1.6-2.3) mg/dL Total Creatine Kinase (55-170) U/L Troponin I (0.000-0.034) ng/mL C-Reactive Protein (<10.0) mg/L 07/14/20 07/14/20 07/14/20 Range/Units 09:57 10:26 10:32 WBC 11.9 H (3.8-10.6) k/uL RBC 3.30 L (4.30-5.90) m/uL Hgb 10.2 L (13.0-17.5) gm/dL Hct 32.3 L (39.0-53.0) % RDW 18.5 H (11.5-15.5) % Plt Count 107 L (150-450) k/uL PT (9.0-12.0) sec INR (<1.2) APTT (22.0-30.0) sec ABG pCO2 59 H (35-45) mmHg ABG pO2 72 L (83-108) mmHg ABG HCO3 32 H (21-25) mmol/L ABG Total CO2 34 H (19-24) mmol/L ABG O2 Saturation 93.5 L (94-97) % Sodium (137-145) mmol/L Chloride (98-107) mmol/L Carbon Dioxide (22-30) mmol/L BUN (9-20) mg/dL Est GFR (CKD-EPI)NonAf (60.0-200.0) BUN/Creatinine Ratio (12.00-20.00) Ratio Glucose (74-99) mg/dL POC Glucose (mg/dL) 113 H (75-99) mg/dL Plasma Lactic Acid Derrell (0.7-2.0) mmol/L Calcium (8.4-10.2) mg/dL Phosphorus (2.5-4.5) mg/dL Magnesium (1.6-2.3) mg/dL Total Creatine Kinase (55-170) U/L Troponin I (0.000-0.034) ng/mL C-Reactive Protein (<10.0) mg/L 07/14/20 07/14/20 07/14/20 Range/Units 10:32 10:32 10:32 WBC (3.8-10.6) k/uL RBC (4.30-5.90) m/uL Hgb (13.0-17.5) gm/dL Hct (39.0-53.0) % RDW (11.5-15.5) % Plt Count (150-450) k/uL PT 14.3 H (9.0-12.0) sec INR 1.4 H (<1.2) APTT 33.2 H (22.0-30.0) sec ABG pCO2 (35-45) mmHg ABG pO2 (83-108) mmHg ABG HCO3 (21-25) mmol/L ABG Total CO2 (19-24) mmol/L ABG O2 Saturation (94-97) % Sodium (137-145) mmol/L Chloride (98-107) mmol/L Carbon Dioxide (22-30) mmol/L BUN (9-20) mg/dL Est GFR (CKD-EPI)NonAf (60.0-200.0) BUN/Creatinine Ratio (12.00-20.00) Ratio Glucose (74-99) mg/dL POC Glucose (mg/dL) (75-99) mg/dL Plasma Lactic Acid Derrell 3.7 H* (0.7-2.0) mmol/L Calcium (8.4-10.2) mg/dL Phosphorus (2.5-4.5) mg/dL Magnesium (1.6-2.3) mg/dL Total Creatine Kinase 50 L (55-170) U/L Troponin I 0.067 H* (0.000-0.034) ng/mL C-Reactive Protein (<10.0) mg/L 07/14/20 07/14/20 Range/Units 10:32 14:12 WBC (3.8-10.6) k/uL RBC (4.30-5.90) m/uL Hgb (13.0-17.5) gm/dL Hct (39.0-53.0) % RDW (11.5-15.5) % Plt Count (150-450) k/uL PT (9.0-12.0) sec INR (<1.2) APTT (22.0-30.0) sec ABG pCO2 (35-45) mmHg ABG pO2 (83-108) mmHg ABG HCO3 (21-25) mmol/L ABG Total CO2 (19-24) mmol/L ABG O2 Saturation (94-97) % Sodium (137-145) mmol/L Chloride (98-107) mmol/L Carbon Dioxide (22-30) mmol/L BUN (9-20) mg/dL Est GFR (CKD-EPI)NonAf (60.0-200.0) BUN/Creatinine Ratio (12.00-20.00) Ratio Glucose (74-99) mg/dL POC Glucose (mg/dL) (75-99) mg/dL Plasma Lactic Acid Derrell 4.2 H* (0.7-2.0) mmol/L Calcium (8.4-10.2) mg/dL Phosphorus 5.0 H (2.5-4.5) mg/dL Magnesium (1.6-2.3) mg/dL Total Creatine Kinase (55-170) U/L Troponin I (0.000-0.034) ng/mL C-Reactive Protein 192.1 H (<10.0) mg/L Assessment and Plan Plan: -Acute hypoxic respiratory failure: Probably secondary to sepsis patient was started on broad-spectrum antibiotic pancultures were obtained patient is pres ently on Zosyn and vancomycin. Patient is presently on BiPAP. -Generalized weakness may be related to newly diagnosed lymphoma. Patient has significant adenopathy in the mediastinum. -Metabolic encephalopathy. -Failure to thrive -Generalized anasarca may be secondary to hypoalbuminemia: Proved patient is presently hypovolemic and patient was started on IV fluids -Just to heart failure chronic diastolic dysfunction along with significant right-sided heart failure, presently hypovolemic this continued Lasix Possible chronic diastolic dysfunction, right-sided heart failure -Lymphedema of the left arm -History of COPD with mild acute exacerbation continue with the inhaled steroids inhalational treatments. -Hyponatremia -DVT prophylaxis with Lovenox
[2020-07-14 22:14] VITALS: PULSE 75; TEMP 97.4
[2020-07-14 22:22] VITALS: BP 56/32
[2020-07-14] MEDS ORDERED: ACETAMINOPHEN SUPPOSITORY 650 MG SUPP RECTAL PRN (23:19)
[2020-07-14] MEDS ORDERED: ONDANSETRON 4 MG/2 ML VIAL IVP PRN (23:19)
[2020-07-14] MEDS ORDERED: HYDROmorphone 1 MG/ML 1 ML SYRINGE IVP PRN (23:19)
[2020-07-14] MEDS ORDERED: LORazepam 2 MG/ML INJ IV PRN (23:19)
[2020-07-14] MEDS ORDERED: ATROPINE OPHTH SOLN 1% 5ML BTL SUBLINGUAL PRN (23:19)
[2020-07-14] MEDS ORDERED: SCOPOLAMINE 1.5MG/72HR PATCH TRANSDERM SCH (23:30)
[2020-07-15 01:35] VITALS: RESP 19
--- NOTE | 2020-07-15 14:31 | P.DS ---
Providers Date of admission: 07/11/20 18:24 Attending physician: Heavenly Nguyen Consults: 07/11/20 18:27 Consult Physician Routine Consulting Provider: Hung Vargas Consult Reason/Comments: Diagnosis of lymphoma Do you want consulting provider notified?: Yes, Notify in am 07/14/20 10:58 Consult Physician Routine Consulting Provider: Eladia Herbert Consult Reason/Comments: Post obstructive Pneumonia Do you want consulting provider notified?: Yes Primary care physician: Julian Miramontes MD Hospital Course: Patient was significantly worse last night yesterday and subsequently made comfort care. Patient today morning. Patient clinical condition has worsened significantly last night. Patient Condition at Discharge: Fair Plan - Discharge Summary New Discharge Prescriptions: No Action predniSONE 5 mg PO MOWEFR Lidocaine 5% Patch [Lidoderm 5% Patch] 1 patch TOPICAL Q12HR HYDROcodone/APAP 5-325MG [[place] 5-325] 1 tab PO Q6H PRN PRN Reason: Pain Mometasone/Formoterol [Dulera 100 Mcg-5 Mcg Inhaler] 2 puff INHALATION RT- DAILY Doxycycline Hyclate [Vibramycin] 100 mg PO MOWEFR Acetaminophen [Tylenol] 325 mg PO DAILY PRN PRN Reason: Pain Discharge Medication List Acetaminophen [Tylenol] 325 mg PO DAILY PRN 07/11/20 [History] Doxycycline Hyclate [Vibramycin] 100 mg PO MOWEFR 07/11/20 [History] HYDROcodone/APAP 5-325MG [[place] 5-325] 1 tab PO Q6H PRN 07/11/20 [History] Lidocaine 5% Patch [Lidoderm 5% Patch] 1 patch TOPICAL Q12HR 07/11/20 [History] Mometasone/Formoterol [Dulera 100 Mcg-5 Mcg Inhaler] 2 puff INHALATION RT-DAILY 07/11/20 [History] predniSONE 5 mg PO MOWEFR 07/11/20 [History] Follow up Appointment(s)/Referral(s): Julian Miramontes MD [Primary Care Provider] - 1-2 days [facility] , [REFERRING] - As Needed Discharge Disposition: - Preliminary Cause of Preliminary Cause of : Lymphoma
--- NOTE | 2020-07-18 12:05 | CDI ---
Documentation Clarification Form Mortality Review Date: 07/18/2020 11:54:44 AM From: Yenni Pinon RN, CCDS Admit Date: 07/11/2020 06:24:00 PM Patient Name: Blair Barclay Visit Number: [id number] Discharge Date: 07/15/2020 11:52:00 AM ATTENTION: The Clinical Documentation Specialists (CDI) and [facility] Coding Staff appreciate your assistance in clarifying documentation. Please respond to the clarification below the line at the bottom and electronically sign. The CDI & [facility] Coding staff will review the response and follow-up if needed. Please note: Queries are made part of the Legal Health Record. If you have any questions, please contact the author of this message via ITS. Dr. Altaf Thurston Atrial Fibrillation is documented in the H&P and Consults, and requires further specificity to accurately reflect this patient's SOI/ROM. History/Risk Factors: Atrial Fib, COPD, PPM, Ablation Clinical Indicators: 07/12 H&P: "PMH: Atrial Fib." 07/12 Oncology Consult: "He is on Eliquis for atrial fibrillation" 07/14 Pulmonary consult: "HPI: He has a history of chronic obstructive pulmonary disease, atrial fibrillation with previous ablation and permanent pacemaker implantation. Assessment: History of atrial fibrillation with ablation and subsequent pacemaker implantation." 07/11 EKG: Ventricular pacemaker Treatment: No cardiac meds or anticoagulation/platelet inhibitor meds ordered this admission or documented in home medications. No cardiology Consult In your professional opinion, can you please clarify the type of Atrial Fibrillation, if known? Chronic/Permanent Paroxysmal Persistent Other, please specify Unable to determine (Last Revision: November 2017) Unable to determine MTDD
--- NOTE | 2020-07-18 12:25 | CDI ---
Documentation Clarification Form Mortality Review Date: 07/18/2020 12:18:15 PM From: Yenni Pinon RN, CCDS Admit Date: 07/11/2020 06:24:00 PM Patient Name: Blair Barclay Visit Number: [id number] Discharge Date: 07/15/2020 11:52:00 AM ATTENTION: The Clinical Documentation Specialists (CDI) and [facility] Coding Staff appreciate your assistance in clarifying documentation. Please respond to the clarification below the line at the bottom and electronically sign. The CDI & [facility] Coding staff will review the response and follow-up if needed. Please note: Queries are made part of the Legal Health Record. If you have any questions, please contact the author of this message via ITS. Dr. Altaf Thurston The patient presented with generalized weakness x 1 week. 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, Lymphoma, ca of tongue Clinical Indicators: 07/12 & 07/14 WBC: 8.4/11.9 07/14 Lactic acid: 5.9 07/14 Blood cultures: negative Vitals signs on admission 07/11 1704: Temp 98, HR 75, RR 20, B/P 94/63, spo2 100% 2L NC 07/14 0300 V/S: Temp 101, HR 75, RR fluctuating 26-40, B/P 109/59, Spo2 99% on 100% NRB Documented possible infectious process: 07/14 Attending Progress Note: "Patient may have postobstructive pneumonia because of which patient was started on Zosyn will also add vancomycin, pulmonary was consulted." 07/15 D/C Summary: "Post obstructive Pneumonia" Treatment: ID Consult: not consulted Antibiotics: 07/14 IV Vanco PTD, Zosyn 3.375 gm IVPB Q 8 hrs. 07/14 500 cc 0.9% NS IVF Bolus In your professional opinion, please clarify if these findings signify one of the following conditions, whether the condition is POA, and cause, if known: Condition Sepsis Severe Sepsis Septic Shock Other, please specify Unable to determine Present on Admission Yes No Identify the (suspected) organism Link or clarify if there is associated (due to/with): Organ failure Shock SIRS Criteria (2 or more of the following may indicate SIRS): -Temperature < 96.8F (36C) or > 101.0F (38.3C) -Heart Rate > 90 bpm -Respiratory Rate > 20 breaths/min or PaCO2 < 32 mmHg -White Blood Cell Count > 12,000 or < 4,000 cells/mm3 or > 10% bands -Lactate >2.0 mmol/L (>4.0 is equivalent to septic shock) (Last Revision: November 2017) My impression is as per my note in its sick since is not documented then there is not in criteria. MTDD
== END 2020-07-15 11:52 | disposition expired | DRG 640 ==
LOC: SUPCPDRO 17:01 → EC 17:01 → 5NMEDONC 18:24 → 4SSUR 23:07 → 3SCARD 07-14 11:57
PROVIDERS: ADMIT Internal Medicine; ATTEND Internal Medicine
PROC: 5A09357 Assistance with Respiratory Ventilation, Less than 24 Consecutive Hours, Continuous Positive Airway Pressure (ICD-10-PCS; principal; 2020-07-14)
DX: E86.0 Dehydration (principal); J96.01 Acute respiratory failure with hypoxia; G93.41 Metabolic encephalopathy; J18.9 Pneumonia, unspecified organism; C85.92 Non-Hodgkin lymphoma, unspecified, intrathoracic lymph nodes; J44.1 Chronic obstructive pulmonary disease with (acute) exacerbation; I50.32 Chronic diastolic (congestive) heart failure; J44.0 Chronic obstructive pulmonary disease with (acute) lower respiratory infection; I50.811 Acute right heart failure; E87.2 Acidosis; I27.20 Pulmonary hypertension, unspecified; E88.09 Other disorders of plasma-protein metabolism, not elsewhere classified; I95.9 Hypotension, unspecified; I48.91 Unspecified atrial fibrillation; E86.1 Hypovolemia; R62.7 Adult failure to thrive; Z66 Do not resuscitate; Z51.5 Encounter for palliative care; Z20.828 Contact with and (suspected) exposure to other viral communicable diseases; E87.1 Hypo-osmolality and hyponatremia; D86.9 Sarcoidosis, unspecified; I89.0 Lymphedema, not elsewhere classified; M62.562 Muscle wasting and atrophy, not elsewhere classified, left lower leg; M62.561 Muscle wasting and atrophy, not elsewhere classified, right lower leg; Z79.51 Long term (current) use of inhaled steroids; Z85.810 Personal history of malignant neoplasm of tongue; Z92.21 Personal history of antineoplastic chemotherapy; Z92.3 Personal history of irradiation; Z87.39 Personal history of other diseases of the musculoskeletal system and connective tissue; Z95.0 Presence of cardiac pacemaker; Z98.890 Other specified postprocedural states
CPT/HCPCS: 36600; 71045; 71046; 80048; 82550; 82553; 82805; 83605; 83615; 83735; 83880; 84100; 84484; 84550; 85025; 85027; 85610; 85730; 86140; 87040; 87502; 93005; 93306; 94640; 94660; 99285